=== PATIENT | male | born 1970 | race Caucasian/White ===

== ENCOUNTER 2021-02-06 13:00 | Inpatient (IN) | payer OTHER ==
[2021-02-06 13:46] VITALS: BMI 32.5
[2021-02-06] MEDS ORDERED: ONDANSETRON *ODT* 4 MG TABLET SL PRN (14:02)
[2021-02-06] MEDS ORDERED: MAGNESIUM HYDROX 2400MG/30ML ORAL SUSPENSION 30 ML CUP PO PRN (14:02)
[2021-02-06] MEDS ORDERED: MAGNESIUM CITRATE 300 ML BOTTLE PO PRN (14:02)
[2021-02-06] MEDS ORDERED: cloNIDine HCL 0.1 MG TABLET PO PRN (14:02)
[2021-02-06] MEDS ORDERED: NICOTINE POLACRILEX 2 MG GUM BUC PRN (14:02)
[2021-02-06] MEDS ORDERED: MENTHOL/PHENOL 1 EACH UD MM PRN (14:02)
[2021-02-06] MEDS ORDERED: ACETAMINOPHEN 325 MG TABLET (FP) PO PRN ×2 (14:02)
[2021-02-06] MEDS ORDERED: MAG HYDROX/AL HYDROX/SIMETH 30 ML UNIT-DOSE CUP PO PRN (14:02)
[2021-02-06] MEDS ORDERED: BISMUTH SUBSALICYLATE 524 MG/30 ML PO PRN (14:02)
[2021-02-06] MEDS ORDERED: METHADONE HCL 10 MG TABLET (FOR DETOX USE ONLY) PO ONE (14:15)
[2021-02-06 15:29] LABS: CALCIUM 9.7 mg/dL (8.5-10.1)
[2021-02-06 15:30] LABS: ALBUMIN 4.2 g/dl (3.4-5.0); BLOOD UREA NITROGEN 10.5 mg/dL (7-18)
[2021-02-06] MEDS: NICOTINE 7 MG/24 HOURS TOPICAL PATCH TD SCH (15:30)
[2021-02-06 15:33] LABS: HEMATOCRIT 40.1 % (35.4-49); HEMOGLOBIN 14.1 GM/dL (11.7-16.9); MCH 30.9 pg (25.7-33.7); MCHC 35.2 g/dl (32.0-35.9); MEAN CELL VOLUME 87.8 fl (80-96); MEAN PLT VOLUME 11.2 fl (7.5-11.1); PLATELET COUNT 201 K/MM3 (134-434); RBC 4.57 M/mm3 (4.00-5.60); RDW 12.9 % (11.9-15.9); WHITE BLOOD COUNT 7.5 K/mm3 (4.0-10.0)
[2021-02-06] MEDS: IBUPROFEN 400 MG TABLET (FP) PO PRN (15:33)
[2021-02-06] MEDS: METHOCARBAMOL 500 MG TABLET PO PRN ×2 (15:33→22:21)
[2021-02-06 15:34] LABS: BILIRUBIN,TOTAL 0.3 mg/dL (0.2-1); CREATININE 1.1 mg/dL (0.55-1.3); TOT PROT 7.5 g/dl (6.4-8.2)
[2021-02-06] MEDS ORDERED: INSULIN (NOVOLOG) ASPART 100 UNITS/ML 10ML VIAL ONE (17:23)
[2021-02-06] MEDS: hydrOXYzine PAMOATE 25 MG CAPSULE (FP) PO SCH ×2 (17:53→22:22)
[2021-02-06] MEDS: INSULIN SLIDING SCALE (NOVOLOG) 1 VIAL SQ SCH ×2 (17:54→22:22)
[2021-02-06] MEDS ORDERED: MELATONIN 5 MG TABLETS PO SCH (22:00)
[2021-02-06] MEDS: THIAMINE HCL 100 MG TABLET (FP) PO SCH (22:22)
[2021-02-07] MEDS: IBUPROFEN 400 MG TABLET (FP) PO PRN ×2 (05:55→14:21)
[2021-02-07] MEDS: METHOCARBAMOL 500 MG TABLET PO PRN ×3 (05:55→22:11)
[2021-02-07] MEDS: hydrOXYzine PAMOATE 25 MG CAPSULE (FP) PO SCH ×5 (06:52→22:15)
[2021-02-07] MEDS: INSULIN SLIDING SCALE (NOVOLOG) 1 VIAL SQ SCH ×4 (07:40→22:15)
[2021-02-07] MEDS ORDERED: METHADONE HCL 10 MG TABLET (FOR DETOX USE ONLY) ONE (09:29)
[2021-02-07] MEDS ORDERED: METHADONE HCL 5 MG TABLET (FOR DETOX USE ONLY) ONE (09:29)
[2021-02-07] MEDS ORDERED: METHADONE (DETOX) 20 MG, METHADONE (DETOX) 5 MG PO ONE (10:00)
[2021-02-07] MEDS: NICOTINE 7 MG/24 HOURS TOPICAL PATCH TD SCH (10:09)
[2021-02-07] MEDS: PRENATAL VITAMINS W/ FOLIC ACID TABLET (FP) PO SCH (10:11)
[2021-02-07] MEDS ORDERED: INSULIN (NOVOLOG) ASPART 100 UNITS/ML 10ML VIAL ONE (11:45)
[2021-02-07 12:48] LABS: HIV INTERPRETATION PRESUMPTIVE POSITIVE (NEGATIVE)
[2021-02-07] MEDS ORDERED: SUVOREXANT 10 MG TABLET PO PRN (22:00)
[2021-02-07] MEDS: ASPIRIN COATED 81 MG TABLET.EC PO SCH (22:10)
[2021-02-07] MEDS: THIAMINE HCL 100 MG TABLET (FP) PO SCH (22:11)
[2021-02-07] MEDS: SUVOREXANT 5 MG TABLET PO PRN (22:13)
[2021-02-08] MEDS: hydrOXYzine PAMOATE 25 MG CAPSULE (FP) PO SCH ×5 (06:02→23:23)
[2021-02-08] MEDS: INSULIN SLIDING SCALE (NOVOLOG) 1 VIAL SQ SCH ×4 (07:32→23:22)
[2021-02-08] MEDS ORDERED: METHADONE HCL 10 MG TABLET (FOR DETOX USE ONLY) PO ONE (10:00)
[2021-02-08] MEDS: ASPIRIN COATED 81 MG TABLET.EC PO SCH (10:04)
[2021-02-08] MEDS: METHOCARBAMOL 500 MG TABLET PO PRN ×2 (10:06→22:07)
[2021-02-08] MEDS: IBUPROFEN 400 MG TABLET (FP) PO PRN ×2 (10:06→22:09)
[2021-02-08] MEDS: NICOTINE 7 MG/24 HOURS TOPICAL PATCH TD SCH (10:07)
[2021-02-08] MEDS: PRENATAL VITAMINS W/ FOLIC ACID TABLET (FP) PO SCH (10:07)
[2021-02-08] MEDS: THIAMINE HCL 100 MG TABLET (FP) PO SCH (22:07)
[2021-02-08] MEDS: SUVOREXANT 5 MG TABLET PO PRN (22:08)
[2021-02-09] MEDS: METHOCARBAMOL 500 MG TABLET PO PRN ×2 (05:29→11:47)
[2021-02-09] MEDS: hydrOXYzine PAMOATE 25 MG CAPSULE (FP) PO SCH ×5 (05:30→23:36)
[2021-02-09] MEDS: IBUPROFEN 400 MG TABLET (FP) PO PRN (05:31)
[2021-02-09] MEDS: INSULIN SLIDING SCALE (NOVOLOG) 1 VIAL SQ SCH ×4 (06:21→23:36)
[2021-02-09] MEDS ORDERED: METHADONE HCL 10 MG TABLET (FOR DETOX USE ONLY) ONE (09:00)
[2021-02-09] MEDS ORDERED: METHADONE HCL 5 MG TABLET (FOR DETOX USE ONLY) ONE (09:00)
[2021-02-09] MEDS ORDERED: METHADONE (DETOX) 10 MG, METHADONE (DETOX) 5 MG PO ONE (10:00)
[2021-02-09] MEDS: PRENATAL VITAMINS W/ FOLIC ACID TABLET (FP) PO SCH (10:09)
[2021-02-09] MEDS: ASPIRIN COATED 81 MG TABLET.EC PO SCH (10:09)
[2021-02-09] MEDS: NICOTINE 7 MG/24 HOURS TOPICAL PATCH TD SCH (10:11)
[2021-02-09] MEDS: ENALAPRIL MALEATE 5 MG TABLET PO SCH (18:40)
[2021-02-09 21:29] VITALS: TEMP 97.3
[2021-02-09] MEDS: THIAMINE HCL 100 MG TABLET (FP) PO SCH (23:37)
[2021-02-10] MEDS: hydrOXYzine PAMOATE 25 MG CAPSULE (FP) PO SCH ×2 (06:56→10:02)
[2021-02-10] MEDS: INSULIN SLIDING SCALE (NOVOLOG) 1 VIAL SQ SCH (06:56)
[2021-02-10] MEDS: PRENATAL VITAMINS W/ FOLIC ACID TABLET (FP) PO SCH (09:58)
[2021-02-10] MEDS: ENALAPRIL MALEATE 5 MG TABLET PO SCH (09:58)
[2021-02-10] MEDS: ASPIRIN COATED 81 MG TABLET.EC PO SCH (09:58)
[2021-02-10] MEDS: NICOTINE 7 MG/24 HOURS TOPICAL PATCH TD SCH (09:58)
[2021-02-10] MEDS: METHOCARBAMOL 500 MG TABLET PO PRN (10:00)
[2021-02-10] MEDS ORDERED: METHADONE HCL 10 MG TABLET (FOR DETOX USE ONLY) PO ONE (10:00)
[2021-02-10] MEDS: IBUPROFEN 400 MG TABLET (FP) PO PRN (10:02)
[2021-02-10 15:12] VITALS: BP 123/78; PULSE 74
[2021-02-11] MEDS ORDERED: METHADONE HCL 5 MG TABLET (FOR DETOX USE ONLY) PO ONE (06:00)
== END 2021-02-10 11:06 | disposition home or self-care (01) | DRG 773 ==
LOC: YASAS 13:00 → Y6N 14:37
PROVIDERS: ADMIT Allergy & Immunology; ATTEND Allergy & Immunology
PROC: HZ2ZZZZ Detoxification Services for Substance Abuse Treatment (ICD-10-PCS; principal; 2021-02-06)
DX: F11.23 Opioid dependence with withdrawal (principal); F14.20 Cocaine dependence, uncomplicated; F17.210 Nicotine dependence, cigarettes, uncomplicated; F19.24 Other psychoactive substance dependence with psychoactive substance-induced mood disorder; I10 Essential (primary) hypertension; B18.2 Chronic viral hepatitis C; E78.00 Pure hypercholesterolemia, unspecified; Z11.59 Encounter for screening for other viral diseases; Z91.14 Patient's other noncompliance with medication regimen; Z59.0 Homelessness
CPT/HCPCS: 36415; 71045-TC-FY; 80053; 82962; 85027; 86780; 87389; 93005; 93010; C9803; J0735; U0003; U0005

== ENCOUNTER 2021-07-02 16:08 | Inpatient (IN) | payer OTHER ==
[2021-07-02 17:54] VITALS: BMI 27.3
[2021-07-02] MEDS ORDERED: P-EPHED 60MG/TRIPROLIDI 2.5MG TABLET PO PRN (19:37)
[2021-07-02] MEDS ORDERED: MAGNESIUM HYDROX 2400MG/30ML ORAL SUSPENSION 30 ML CUP PO PRN (19:37)
[2021-07-02] MEDS ORDERED: LOPERAMIDE HCL 2 MG CAPSULE PO PRN (19:37)
[2021-07-02] MEDS ORDERED: MAG HYDROX/AL HYDROX/SIMETH 30 ML UNIT-DOSE CUP PO PRN (19:37)
[2021-07-02] MEDS ORDERED: IBUPROFEN 400 MG TABLET (FP) PO PRN (19:37)
[2021-07-02] MEDS ORDERED: MAGNESIUM CITRATE 300 ML BOTTLE PO PRN (19:37)
[2021-07-02] MEDS ORDERED: guaiFENesin 200 MG/10 ML 10 ML UNIT-DOSE CUPS PO PRN (19:37)
[2021-07-02] MEDS ORDERED: ACETAMINOPHEN 325 MG TABLET (FP) PO PRN (19:37)
[2021-07-03 01:05] VITALS: BP 149/92; PULSE 76; TEMP 98.6
[2021-07-03] MEDS: THIAMINE HCL 100 MG TABLET (FP) PO SCH ×2 (02:30→22:18)
[2021-07-03] MEDS: MELATONIN 5 MG TABLETS PO SCH ×2 (02:30→22:18)
[2021-07-03] MEDS: INSULIN SLIDING SCALE (NOVOLOG) 1 VIAL SQ SCH ×3 (02:30→17:27)
[2021-07-03 10:36] LABS: PH,URINE 6.5 (5.0-8.0); URINE APPEARANCE CLEAR; URINE BILIRUBIN NEGATIVE (NEGATIVE); URINE COLOR DK YELLOW; URINE GLUCOSE (UA) NEGATIVE (NEGATIVE); URINE KETONE TRACE (NEGATIVE); URINE LEUK ESTERASE NEGATIVE (NEGATIVE); URINE NITRITE NEGATIVE (NEGATIVE); URINE PROTEIN NEGATIVE (NEGATIVE)
[2021-07-03] MEDS: ASPIRIN 81 MG CHEWABLE TABLETS PO SCH (10:37)
[2021-07-03] MEDS: PRENATAL VITAMINS W/ FOLIC ACID TABLET (FP) PO SCH (10:37)
[2021-07-03] MEDS: ENALAPRIL MALEATE 5 MG TABLET PO SCH (10:38)
[2021-07-03] MEDS: FENOFIBRIC ACID 135 MG CAP PO SCH (10:38)
[2021-07-03 10:39] LABS: ALBUMIN 2.7 g/dl (3.4-5.0); BLOOD UREA NITROGEN 11.1 mg/dL (7-18); CALCIUM 8.5 mg/dL (8.5-10.1)
[2021-07-03 10:43] LABS: HEMATOCRIT 35.2 % (35.4-49); HEMOGLOBIN 12.2 GM/dL (11.7-16.9); MCH 29.6 pg (25.7-33.7); MCHC 34.6 g/dl (32.0-35.9); MEAN CELL VOLUME 85.5 fl (80-96); MEAN PLT VOLUME 10.4 fl (7.5-11.1); PLATELET COUNT 189 10^3/uL (134-434); RBC 4.12 M/mm3 (4.00-5.60); RDW 14.8 % (11.9-15.9); WHITE BLOOD COUNT 5.1 K/mm3 (4.0-10.0)
[2021-07-03 10:44] LABS: CREATININE 0.7 mg/dL (0.55-1.3)
[2021-07-03 10:46] LABS: TOT PROT 6.1 g/dl (6.4-8.2)
[2021-07-03 10:49] LABS: BILIRUBIN,TOTAL 0.2 mg/dL (0.2-1)
[2021-07-04] MEDS: INSULIN SLIDING SCALE (NOVOLOG) 1 VIAL SQ SCH (07:09)
[2021-07-04] MEDS ORDERED: TRIMETHOBENZAMIDE HCL 200MG/2ML INJ IM PRN (10:01)
[2021-07-04] MEDS: FENOFIBRIC ACID 135 MG CAP PO SCH (10:33)
[2021-07-04] MEDS: PRENATAL VITAMINS W/ FOLIC ACID TABLET (FP) PO SCH (10:33)
[2021-07-04] MEDS: ASPIRIN 81 MG CHEWABLE TABLETS PO SCH (10:33)
[2021-07-04] MEDS: ENALAPRIL MALEATE 5 MG TABLET PO SCH (10:33)
[2021-07-04] MEDS ORDERED: methaDONE HCL 40 MG DISPERSABLE TABLET PO ONE (11:26)
== END 2021-07-04 11:58 | disposition left against medical advice (07) | DRG 772 ==
LOC: YASAS 16:08 → Y3W 18:50
PROVIDERS: ADMIT Allergy & Immunology; ATTEND Allergy & Immunology
PROC: HZ42ZZZ Group Counseling for Substance Abuse Treatment, Cognitive-Behavioral (ICD-10-PCS; principal; 2021-07-02)
DX: F11.20 Opioid dependence, uncomplicated (principal); F14.20 Cocaine dependence, uncomplicated; F15.20 Other stimulant dependence, uncomplicated; F31.9 Bipolar disorder, unspecified; E78.5 Hyperlipidemia, unspecified; E11.9 Type 2 diabetes mellitus without complications; I10 Essential (primary) hypertension; Z86.19 Personal history of other infectious and parasitic diseases; F91.8 Other conduct disorders; Z91.19 Patient's noncompliance with other medical treatment and regimen
CPT/HCPCS: 36415; 80053; 81003; 82962; 85027; 86780; 87811

== ENCOUNTER 2021-12-31 12:40 | Inpatient (IN) | payer BC ==
[2021-12-31 18:21] VITALS: BMI 24.0
[2021-12-31] MEDS ORDERED: hydrOXYzine PAMOATE 25 MG CAPSULE (FP) PO PRN (20:48)
[2021-12-31] MEDS ORDERED: MAGNESIUM HYDROX 2400MG/30ML ORAL SUSPENSION 30 ML CUP PO PRN (20:48)
[2021-12-31] MEDS ORDERED: NICOTINE POLACRILEX 2 MG GUM BC PRN (20:48)
[2021-12-31] MEDS ORDERED: LOPERAMIDE HCL 2 MG CAPSULE PO PRN (20:48)
[2021-12-31] MEDS ORDERED: MAG HYDROX/AL HYDROX/SIMETH 30 ML UNIT-DOSE CUP PO PRN (20:48)
[2021-12-31] MEDS ORDERED: MAGNESIUM CITRATE 300 ML BOTTLE PO PRN (20:48)
[2021-12-31] MEDS ORDERED: P-EPHED 60MG/TRIPROLIDI 2.5MG TABLET PO PRN (20:48)
[2021-12-31] MEDS ORDERED: BISMUTH SUBSALICYLATE 524 MG/30 ML PO PRN (21:31)
[2021-12-31] MEDS ORDERED: DICYCLOMINE HCL 10 MG CAPSULE PO PRN (21:31)
[2021-12-31] MEDS ORDERED: NALOXONE HCL 0.4 MG/ML VIAL IM PRN (21:31)
[2021-12-31] MEDS ORDERED: METHOCARBAMOL 500 MG TABLET PO PRN (21:31)
[2021-12-31] MEDS: diazePAM 5 MG TABLET PO SCH (23:38)
[2021-12-31] MEDS: MELATONIN 5 MG TABLETS PO SCH (23:39)
[2021-12-31] MEDS: THIAMINE HCL 100 MG TABLET (FP) PO SCH (23:39)
[2022-01-01] MEDS: diazePAM 5 MG TABLET PO SCH ×4 (06:03→22:26)
[2022-01-01] MEDS: AMOX TR/POT CLAV 875MG/125MG TABLETS (FP) PO SCH ×2 (07:15→22:25)
[2022-01-01] MEDS: PRENATAL VITAMINS W/ FOLIC ACID TABLET (FP) PO SCH (10:13)
[2022-01-01] MEDS: NICOTINE 14 MG/24 HOURS TOPICAL PATCH TD SCH (10:14)
[2022-01-01] MEDS ORDERED: methaDONE HCL 40 MG DISPERSABLE TABLET PO ONE (10:45)
[2022-01-01 11:06] LABS: HEMOGLOBIN 13.3 GM/dL (11.7-16.9); MCH 28.1 pg (25.7-33.7); MCHC 33.1 g/dl (32.0-35.9); MEAN CELL VOLUME 84.7 fl (80-96); MEAN PLT VOLUME 9.8 fl (7.5-11.1); PLATELET COUNT 291 10^3/uL (134-434); RBC 4.73 M/mm3 (4.00-5.60); RDW 14.7 % (11.9-15.9); WHITE BLOOD COUNT 7.3 K/mm3 (4.0-10.0)
[2022-01-01 12:57] LABS: CALCIUM 9.4 mg/dL (8.5-10.1)
[2022-01-01 12:58] LABS: ALBUMIN 3.3 g/dl (3.4-5.0)
[2022-01-01 13:02] LABS: BILIRUBIN,TOTAL 0.3 mg/dL (0.2-1)
[2022-01-01 13:03] LABS: TOT PROT 7.5 g/dl (6.4-8.2)
[2022-01-01] MEDS ORDERED: POTASSIUM CHLORIDE ORAL LIQUID 20 MEQ/15 ML PO ONE (14:00)
[2022-01-01] MEDS: guaiFENesin 200 MG/10 ML 10 ML UNIT-DOSE CUPS PO PRN (15:04)
[2022-01-01] MEDS: IBUPROFEN 400 MG TABLET (FP) PO PRN (17:13)
[2022-01-01] MEDS: ONDANSETRON *ODT* 4 MG TABLET SL PRN (20:43)
[2022-01-01] MEDS: QUEtiapine FUMARATE 50 MG TABLET PO SCH (22:25)
[2022-01-01] MEDS: THIAMINE HCL 100 MG TABLET (FP) PO SCH (22:25)
[2022-01-01] MEDS: POTASSIUM CHLORIDE ORAL LIQUID 20 MEQ/15 ML PO SCH (22:25)
[2022-01-01] MEDS: MELATONIN 5 MG TABLETS PO SCH (22:26)
[2022-01-02] MEDS ORDERED: methaDONE HCL 40 MG DISPERSABLE TABLET ONE (04:16)
[2022-01-02] MEDS ORDERED: methaDONE HCL 10 MG TABLET ONE (04:16)
[2022-01-02] MEDS: diazePAM 5 MG TABLET PO SCH ×3 (05:57→22:46)
[2022-01-02] MEDS ORDERED: methaDONE HCL 10 MG TABLET PO ONE (06:00)
[2022-01-02] MEDS ORDERED: methaDONE 40 MG, methaDONE 10 MG PO ONE (06:00)
[2022-01-02] MEDS: AMOX TR/POT CLAV 875MG/125MG TABLETS (FP) PO SCH ×2 (08:32→21:00)
[2022-01-02] MEDS: PRENATAL VITAMINS W/ FOLIC ACID TABLET (FP) PO SCH (10:27)
[2022-01-02] MEDS: NICOTINE 14 MG/24 HOURS TOPICAL PATCH TD SCH (10:27)
[2022-01-02] MEDS: POTASSIUM CHLORIDE ORAL LIQUID 20 MEQ/15 ML PO SCH ×2 (10:28→21:37)
[2022-01-02] MEDS: PANTOPRAZOLE 20 MG TABLET PO SCH (10:28)
[2022-01-02] MEDS: ASPIRIN 81 MG CHEWABLE TABLETS PO SCH (10:29)
[2022-01-02] MEDS: diazePAM 5 MG TABLET PO PRN ×2 (10:32→18:43)
[2022-01-02] MEDS: FENOFIBRIC ACID 135 MG CAP PO SCH (13:55)
[2022-01-02] MEDS: ENALAPRIL MALEATE 5 MG TABLET PO SCH (13:55)
[2022-01-02 14:14] LABS: SARS-CoV-2 NAA Not Detected (Not Detected)
[2022-01-02] MEDS: ONDANSETRON *ODT* 4 MG TABLET SL PRN (14:37)
[2022-01-02 17:24] LABS: EPI CELLS 2 /uL (0-25.1); HYALINE CASTS 0 /uL (0-3.1); URINE APPEARANCE CLEAR; URINE BILIRUBIN NEGATIVE (NEGATIVE); URINE COLOR YELLOW; URINE GLUCOSE (UA) NEGATIVE (NEGATIVE); URINE KETONE NEGATIVE (NEGATIVE); URINE LEUK ESTERASE NEGATIVE (NEGATIVE); URINE NITRITE POSITIVE (NEGATIVE); URINE PROTEIN NEGATIVE (NEGATIVE); URINE RBC 2 /uL (0-23.9); URINE UROBILINOGEN 0.2 mg/dL (0.2-1.0); URINE WBC 2 /uL (0-25.8)
[2022-01-02] MEDS: IBUPROFEN 400 MG TABLET (FP) PO PRN (18:41)
[2022-01-02] MEDS: BENZOCAINE/MENTHOL (CHLORASEPTIC ) LOZENGE MM PRN (18:45)
[2022-01-02] MEDS: guaiFENesin 200 MG/10 ML 10 ML UNIT-DOSE CUPS PO PRN (18:45)
[2022-01-02] MEDS: ACETAMINOPHEN 325 MG TABLET (FP) PO PRN (20:45)
[2022-01-02] MEDS: MELATONIN 5 MG TABLETS PO SCH (21:37)
[2022-01-02] MEDS: QUEtiapine FUMARATE 50 MG TABLET PO SCH (21:37)
[2022-01-02] MEDS: THIAMINE HCL 100 MG TABLET (FP) PO SCH (21:37)
[2022-01-03] MEDS ORDERED: methaDONE HCL 10 MG TABLET ONE (04:55)
[2022-01-03] MEDS ORDERED: methaDONE HCL 40 MG DISPERSABLE TABLET ONE (04:56)
[2022-01-03] MEDS ORDERED: methaDONE HCL 10 MG TABLET PO ONE (06:00)
[2022-01-03] MEDS ORDERED: methaDONE 40 MG, methaDONE 20 MG PO ONE (06:00)
[2022-01-03] MEDS: diazePAM 5 MG TABLET PO SCH ×2 (06:19→17:42)
[2022-01-03] MEDS: IBUPROFEN 400 MG TABLET (FP) PO PRN ×2 (06:20→17:41)
[2022-01-03] MEDS: AMOX TR/POT CLAV 875MG/125MG TABLETS (FP) PO SCH ×2 (07:33→20:35)
[2022-01-03] MEDS: ASPIRIN 81 MG CHEWABLE TABLETS PO SCH (10:14)
[2022-01-03] MEDS: ENALAPRIL MALEATE 5 MG TABLET PO SCH (10:14)
[2022-01-03] MEDS: FENOFIBRIC ACID 135 MG CAP PO SCH (10:14)
[2022-01-03] MEDS: PANTOPRAZOLE 20 MG TABLET PO SCH (10:14)
[2022-01-03] MEDS: NICOTINE 14 MG/24 HOURS TOPICAL PATCH TD SCH (10:15)
[2022-01-03] MEDS: PRENATAL VITAMINS W/ FOLIC ACID TABLET (FP) PO SCH (10:15)
[2022-01-03] MEDS: ACETAMINOPHEN 325 MG TABLET (FP) PO PRN (10:16)
[2022-01-03] MEDS: diazePAM 5 MG TABLET PO PRN (10:17)
[2022-01-03] MEDS: ONDANSETRON *ODT* 4 MG TABLET SL PRN (19:55)
[2022-01-03] MEDS: QUEtiapine FUMARATE 50 MG TABLET PO SCH (23:02)
[2022-01-03] MEDS: MELATONIN 5 MG TABLETS PO SCH (23:02)
[2022-01-03] MEDS: THIAMINE HCL 100 MG TABLET (FP) PO SCH (23:03)
[2022-01-04] MEDS ORDERED: methaDONE HCL 10 MG TABLET ONE (04:49)
[2022-01-04] MEDS ORDERED: methaDONE HCL 40 MG DISPERSABLE TABLET ONE (04:49)
[2022-01-04] MEDS ORDERED: methaDONE HCL 10 MG TABLET PO ONE (06:00)
[2022-01-04] MEDS ORDERED: methaDONE 40 MG, methaDONE 30 MG PO ONE (06:00)
[2022-01-04] MEDS ORDERED: diazePAM 5 MG TABLET PO ONE (06:00)
[2022-01-04] MEDS: AMOX TR/POT CLAV 875MG/125MG TABLETS (FP) PO SCH ×2 (07:28→19:51)
[2022-01-04] MEDS: PANTOPRAZOLE 20 MG TABLET PO SCH (10:27)
[2022-01-04] MEDS: PRENATAL VITAMINS W/ FOLIC ACID TABLET (FP) PO SCH (10:27)
[2022-01-04] MEDS: ASPIRIN 81 MG CHEWABLE TABLETS PO SCH (10:27)
[2022-01-04] MEDS: FENOFIBRIC ACID 135 MG CAP PO SCH (10:27)
[2022-01-04] MEDS: NICOTINE 14 MG/24 HOURS TOPICAL PATCH TD SCH (10:27)
[2022-01-04] MEDS: ENALAPRIL MALEATE 5 MG TABLET PO SCH (10:31)
[2022-01-04] MEDS: THIAMINE HCL 100 MG TABLET (FP) PO SCH (22:27)
[2022-01-04] MEDS: MELATONIN 5 MG TABLETS PO SCH (22:27)
[2022-01-04] MEDS: QUEtiapine FUMARATE 50 MG TABLET PO SCH (22:27)
[2022-01-05] MEDS: BENZOCAINE/MENTHOL (CHLORASEPTIC ) LOZENGE MM PRN (05:20)
[2022-01-05] MEDS ORDERED: methaDONE HCL 40 MG DISPERSABLE TABLET PO SCH ×2 (06:00)
[2022-01-05] MEDS: AMOX TR/POT CLAV 875MG/125MG TABLETS (FP) PO SCH (07:07)
[2022-01-05 09:02] VITALS: BP 105/61; PULSE 81; TEMP 96.9
[2022-01-05] MEDS: PANTOPRAZOLE 20 MG TABLET PO SCH (09:34)
[2022-01-05] MEDS: ENALAPRIL MALEATE 5 MG TABLET PO SCH (09:34)
[2022-01-05] MEDS: PRENATAL VITAMINS W/ FOLIC ACID TABLET (FP) PO SCH (09:34)
[2022-01-05] MEDS: FENOFIBRIC ACID 135 MG CAP PO SCH (09:35)
[2022-01-05] MEDS: ASPIRIN 81 MG CHEWABLE TABLETS PO SCH (09:35)
[2022-01-05] MEDS: NICOTINE 14 MG/24 HOURS TOPICAL PATCH TD SCH (09:38)
== END 2022-01-05 11:05 | disposition other institution (70) | DRG 773 ==
LOC: YASAS 12:40 → UNDOADMIN 18:29 → Y3W 18:29 → Y3N 22:09
PROVIDERS: ADMIT Allergy & Immunology; ATTEND Allergy & Immunology
PROC: HZ2ZZZZ Detoxification Services for Substance Abuse Treatment (ICD-10-PCS; principal; 2021-12-31)
DX: F11.23 Opioid dependence with withdrawal (principal); F10.230 Alcohol dependence with withdrawal, uncomplicated; F14.20 Cocaine dependence, uncomplicated; F17.210 Nicotine dependence, cigarettes, uncomplicated; F19.24 Other psychoactive substance dependence with psychoactive substance-induced mood disorder; F31.9 Bipolar disorder, unspecified; E11.65 Type 2 diabetes mellitus with hyperglycemia; E87.6 Hypokalemia; E78.5 Hyperlipidemia, unspecified; I10 Essential (primary) hypertension; K21.9 Gastro-esophageal reflux disease without esophagitis; N39.0 Urinary tract infection, site not specified; S00.81XA Abrasion of other part of head, initial encounter; W22.03XA Walked into furniture, initial encounter; Y92.230 Patient room in hospital as the place of occurrence of the external cause; Z86.11 Personal history of tuberculosis; Z86.19 Personal history of other infectious and parasitic diseases; Z91.410 Personal history of adult physical and sexual abuse; Z86.73 Personal history of transient ischemic attack (TIA), and cerebral infarction without residual deficits
CPT/HCPCS: 36415; 80053; 81003; 82962; 85027; 86780; 93005; 93010; C9803-CS; Q0162; U0003; U0005

== ENCOUNTER 2022-01-03 12:06 | Emergency (ER) | payer BC ==
[2022-01-03 12:29] VITALS: BP 123/75; PULSE 84; TEMP 97.6; BMI 25.7
[2022-01-03] MEDS ORDERED: BACITRACIN 15 GM TUBE TOPICAL OINTMENT TP ONE (12:39)
[2022-01-03] MEDS ORDERED: BACITRACIN 15 GM TUBE TOPICAL OINTMENT ONE (13:03)
== END 2022-01-03 13:15 | disposition home or self-care (01) ==
LOC: JERFT 12:06
DX: S00.81XA Abrasion of other part of head, initial encounter (principal); W01.198A Fall on same level from slipping, tripping and stumbling with subsequent striking against other object, initial encounter
CPT/HCPCS: 82962; 99283-25

== ENCOUNTER 2023-05-31 20:00 | Inpatient (IN) | payer OTHER ==
[2023-05-31 21:36] VITALS: BMI 25.7
[2023-05-31] MEDS ORDERED: BENZONATATE 200 MG CAPSULE PO PRN (22:50)
[2023-05-31] MEDS ORDERED: P-EPHED 60MG/TRIPROLIDI 2.5MG TABLET PO PRN (22:50)
[2023-05-31] MEDS ORDERED: NALOXONE HCL 0.4 MG/ML VIAL IM PRN (22:50)
[2023-05-31] MEDS ORDERED: MAGNESIUM HYDROX 2400MG/30ML ORAL SUSPENSION 30 ML CUP PO PRN (22:50)
[2023-05-31] MEDS ORDERED: NICOTINE POLACRILEX 2 MG GUM BUC PRN (22:50)
[2023-05-31] MEDS ORDERED: NALOXONE HCL (KLOXXADO) 8 MG SPRAY NS PRN (22:50)
[2023-05-31] MEDS ORDERED: guaiFENesin 600 MG TABLET.ER (FP) PO PRN (22:50)
[2023-05-31] MEDS ORDERED: BENZOCAINE/MENTHOL (CHLORASEPTIC ) LOZENGE MM PRN (22:50)
[2023-05-31] MEDS ORDERED: ACETAMINOPHEN 325 MG TABLET (FP) PO PRN (22:50)
[2023-05-31] MEDS ORDERED: DICYCLOMINE HCL 10 MG CAPSULE PO PRN (22:50)
[2023-05-31] MEDS ORDERED: LOPERAMIDE HCL 2 MG CAPSULE PO PRN (22:50)
[2023-05-31] MEDS ORDERED: BISMUTH SUBSALICYLATE 524 MG/30 ML PO PRN (22:50)
[2023-05-31] MEDS ORDERED: IBUPROFEN 400 MG TABLET (FP) PO PRN (22:50)
[2023-05-31] MEDS ORDERED: hydrOXYzine PAMOATE 25 MG CAPSULE (FP) PO PRN (22:50)
[2023-05-31] MEDS ORDERED: POLYETHYLENE GLYCOL (HEALTHYLAX) 3350 17 GM PACKET PO PRN (22:50)
[2023-05-31] MEDS ORDERED: MAG HYDROX/AL HYDROX/SIMETH 30 ML UNIT-DOSE CUP PO PRN (22:50)
[2023-05-31] MEDS ORDERED: ONDANSETRON *ODT* 4 MG TABLET SL PRN (22:50)
[2023-06-01] MEDS ORDERED: methaDONE HCL 10 MG TABLET (FOR DETOX USE ONLY) PO ONE (09:41)
[2023-06-01] MEDS ORDERED: diazePAM 5 MG TABLET PO PRN (09:42)
[2023-06-01] MEDS: PANTOPRAZOLE 20 MG TABLET PO SCH (10:00)
[2023-06-01] MEDS: ASPIRIN 81 MG CHEWABLE TABLETS PO SCH (10:00)
[2023-06-01] MEDS: PRENATAL VITAMINS W/ FOLIC ACID TABLET (FP) PO SCH (10:00)
[2023-06-01] MEDS: ENALAPRIL MALEATE 5 MG TABLET PO SCH (10:49)
[2023-06-01] MEDS: FENOFIBRIC ACID 135 MG CAP PO SCH (10:49)
[2023-06-01 12:20] LABS: HEMATOCRIT 39.3 % (35.4-49); HEMOGLOBIN 13.2 GM/dL (11.7-16.9); MCH 29.3 pg (25.7-33.7); MCHC 33.5 g/dl (32.0-35.9); MEAN CELL VOLUME 87.4 fl (80-96); MEAN PLT VOLUME 9.8 fl (7.5-11.1); PLATELET COUNT 252 10^3/uL (134-434); RBC 4.49 M/mm3 (4.00-5.60); RDW 13.7 % (11.9-15.9); WHITE BLOOD COUNT 7.9 K/mm3 (4.0-10.0)
[2023-06-01 13:18] LABS: POTASSIUM 4.1 mmol/L (3.5-5.1)
[2023-06-01 13:42] LABS: ALBUMIN 3.4 g/dl (3.4-5.0); BLOOD UREA NITROGEN 10.3 mg/dL (7-18); CALCIUM 9.1 mg/dL (8.5-10.1)
[2023-06-01 13:44] LABS: CREATININE 0.7 mg/dL (0.55-1.3)
[2023-06-01 13:48] LABS: BILIRUBIN,TOTAL 0.4 mg/dL (0.2-1); TOT PROT 7.6 g/dl (6.4-8.2)
[2023-06-01] MEDS: THIAMINE HCL 100 MG TABLET (FP) PO SCH (22:37)
[2023-06-01] MEDS: MELATONIN 5 MG TABLETS PO SCH (22:37)
[2023-06-02] MEDS: FENOFIBRIC ACID 135 MG CAP PO SCH (10:26)
[2023-06-02] MEDS: ASPIRIN 81 MG CHEWABLE TABLETS PO SCH (10:26)
[2023-06-02] MEDS: PANTOPRAZOLE 20 MG TABLET PO SCH (10:26)
[2023-06-02] MEDS: PRENATAL VITAMINS W/ FOLIC ACID TABLET (FP) PO SCH (10:26)
[2023-06-02] MEDS: ENALAPRIL MALEATE 5 MG TABLET PO SCH (10:26)
[2023-06-02] MEDS: cloNIDine HCL 0.1 MG TABLET PO PRN (17:42)
[2023-06-02] MEDS: MELATONIN 5 MG TABLETS PO SCH (22:57)
[2023-06-02] MEDS: THIAMINE HCL 100 MG TABLET (FP) PO SCH (22:57)
[2023-06-03] MEDS ORDERED: methaDONE HCL 10 MG TABLET (FOR DETOX USE ONLY) PO ONE (10:00)
[2023-06-03] MEDS: PANTOPRAZOLE 20 MG TABLET PO SCH (10:03)
[2023-06-03] MEDS: ENALAPRIL MALEATE 5 MG TABLET PO SCH (10:03)
[2023-06-03] MEDS: FENOFIBRIC ACID 135 MG CAP PO SCH (10:03)
[2023-06-03] MEDS: PRENATAL VITAMINS W/ FOLIC ACID TABLET (FP) PO SCH (10:03)
[2023-06-03] MEDS: ASPIRIN 81 MG CHEWABLE TABLETS PO SCH (10:03)
[2023-06-03] MEDS: cloNIDine HCL 0.1 MG TABLET PO PRN ×2 (17:40→22:40)
[2023-06-03] MEDS: MELATONIN 5 MG TABLETS PO SCH (22:40)
[2023-06-03] MEDS: THIAMINE HCL 100 MG TABLET (FP) PO SCH (22:41)
[2023-06-04] MEDS: PANTOPRAZOLE 20 MG TABLET PO SCH (10:08)
[2023-06-04] MEDS: ASPIRIN 81 MG CHEWABLE TABLETS PO SCH (10:08)
[2023-06-04] MEDS: FENOFIBRIC ACID 135 MG CAP PO SCH (10:08)
[2023-06-04] MEDS: PRENATAL VITAMINS W/ FOLIC ACID TABLET (FP) PO SCH (10:10)
[2023-06-04] MEDS: ENALAPRIL MALEATE 5 MG TABLET PO SCH (10:10)
[2023-06-04] MEDS: IBUPROFEN 600 MG TABLET (FP) PO PRN (18:43)
[2023-06-04] MEDS ORDERED: ENALAPRIL MALEATE 5 MG TABLET PO ONE (19:27)
[2023-06-04] MEDS ORDERED: ENALAPRIL MALEATE 10 MG TABLET PO SCH (19:30)
[2023-06-04] MEDS ORDERED: LISINOPRIL 5 MG TABLET PO ONE (19:34)
[2023-06-04] MEDS ORDERED: ENALAPRIL MALEATE 10 MG TABLET PO ONE (20:00)
[2023-06-04] MEDS: THIAMINE HCL 100 MG TABLET (FP) PO SCH (23:00)
[2023-06-04] MEDS: MELATONIN 5 MG TABLETS PO SCH (23:00)
[2023-06-05] MEDS: ASPIRIN 81 MG CHEWABLE TABLETS PO SCH (09:58)
[2023-06-05] MEDS: PRENATAL VITAMINS W/ FOLIC ACID TABLET (FP) PO SCH (09:58)
[2023-06-05] MEDS ORDERED: methaDONE HCL 10 MG TABLET (FOR DETOX USE ONLY) PO ONE (10:00)
[2023-06-05] MEDS: PANTOPRAZOLE 20 MG TABLET PO SCH (10:00)
[2023-06-05] MEDS: FENOFIBRIC ACID 135 MG CAP PO SCH (10:00)
[2023-06-05] MEDS: IBUPROFEN 600 MG TABLET (FP) PO PRN (10:01)
[2023-06-05] MEDS: ENALAPRIL MALEATE 10 MG TABLET PO SCH (10:04)
[2023-06-05] MEDS ORDERED: cloNIDine HCL 0.1 MG TABLET PO PRN (12:02)
[2023-06-05] MEDS: THIAMINE HCL 100 MG TABLET (FP) PO SCH (21:43)
[2023-06-05] MEDS: MELATONIN 5 MG TABLETS PO SCH (21:43)
[2023-06-06 06:30] VITALS: BP 147/66; PULSE 87; RESP 19; TEMP 98
[2023-06-06] MEDS: ASPIRIN 81 MG CHEWABLE TABLETS PO SCH (10:43)
[2023-06-06] MEDS: PANTOPRAZOLE 20 MG TABLET PO SCH (10:43)
[2023-06-06] MEDS: FENOFIBRIC ACID 135 MG CAP PO SCH (10:43)
[2023-06-06] MEDS: PRENATAL VITAMINS W/ FOLIC ACID TABLET (FP) PO SCH (10:43)
[2023-06-06] MEDS: ENALAPRIL MALEATE 10 MG TABLET PO SCH (10:43)
== END 2023-06-06 08:57 | disposition home or self-care (01) | DRG 773 ==
LOC: YASAS 20:00 → Y3N 23:35
PROVIDERS: ADMIT Allergy & Immunology; ATTEND Surgery
PROC: HZ2ZZZZ Detoxification Services for Substance Abuse Treatment (ICD-10-PCS; principal; 2023-05-31)
DX: F11.23 Opioid dependence with withdrawal (principal); F14.20 Cocaine dependence, uncomplicated; F17.210 Nicotine dependence, cigarettes, uncomplicated; F31.9 Bipolar disorder, unspecified; I10 Essential (primary) hypertension; Z86.19 Personal history of other infectious and parasitic diseases; Z86.73 Personal history of transient ischemic attack (TIA), and cerebral infarction without residual deficits; Z86.39 Personal history of other endocrine, nutritional and metabolic disease
CPT/HCPCS: 36415; 80053; 85027; 86780; 87635

== ENCOUNTER 2023-11-22 22:26 | Inpatient (IN) | payer OTHER ==
[2023-11-22 14:05] VITALS: BMI 27.4
[2023-11-23] MEDS ORDERED: IBUPROFEN 400 MG TABLET (FP) PO PRN (00:01)
[2023-11-23] MEDS ORDERED: guaiFENesin 600 MG TABLET.ER (FP) PO PRN (00:01)
[2023-11-23] MEDS ORDERED: NALOXONE HCL 0.4 MG/ML VIAL IM PRN (00:01)
[2023-11-23] MEDS ORDERED: NALOXONE HCL (KLOXXADO) 8 MG SPRAY NS PRN (00:01)
[2023-11-23] MEDS ORDERED: POLYETHYLENE GLYCOL (HEALTHYLAX) 3350 17 GM PACKET PO PRN (00:01)
[2023-11-23] MEDS ORDERED: MAGNESIUM HYDROX 2400MG/30ML ORAL SUSPENSION 30 ML CUP PO PRN (00:01)
[2023-11-23] MEDS ORDERED: BENZONATATE 200 MG CAPSULE PO PRN (00:01)
[2023-11-23] MEDS ORDERED: NICOTINE POLACRILEX 2 MG GUM BUC PRN (00:01)
[2023-11-23] MEDS: IBUPROFEN 600 MG TABLET (FP) PO PRN (06:34)
[2023-11-23] MEDS: PRENATAL VITAMINS W/ FOLIC ACID TABLET (FP) PO SCH (10:20)
[2023-11-23] MEDS: NICOTINE 14 MG/24 HOURS TOPICAL PATCH TD SCH (10:20)
[2023-11-23] MEDS: traZODone HCL 100 MG TABLET (FP) PO SCH (22:55)
[2023-11-23] MEDS: QUEtiapine FUMARATE 100 MG TABLET (FP) PO SCH (22:55)
[2023-11-23] MEDS: THIAMINE HCL 100 MG TABLET (FP) PO SCH (22:55)
[2023-11-23] MEDS: MELATONIN 5 MG TABLETS PO SCH (22:55)
[2023-11-24 08:53] LABS: HEMATOCRIT 38.4 % (35.4-49); HEMOGLOBIN 12.8 GM/dL (11.7-16.9); MCH 29.5 pg (25.7-33.7); MCHC 33.4 g/dl (32.0-35.9); MEAN CELL VOLUME 88.3 fl (80-96); MEAN PLT VOLUME 9.9 fl (7.5-11.1); PLATELET COUNT 211 10^3/uL (134-434); RBC 4.35 M/mm3 (4.00-5.60); WHITE BLOOD COUNT 8.3 K/mm3 (4.0-10.0)
[2023-11-24 09:02] LABS: EPI CELLS 4 /uL (0-25.1); HYALINE CASTS 0 /uL (0-3.1); URINE APPEARANCE CLEAR; URINE BACTERIA 4 /uL (0-1359); URINE BILIRUBIN NEGATIVE (NEGATIVE); URINE COLOR YELLOW; URINE GLUCOSE (UA) NEGATIVE (NEGATIVE); URINE KETONE NEGATIVE (NEGATIVE); URINE LEUK ESTERASE TRACE (NEGATIVE); URINE NITRITE NEGATIVE (NEGATIVE); URINE PROTEIN NEGATIVE (NEGATIVE); URINE RBC 6 /uL (0-23.9); URINE UROBILINOGEN 0.2 mg/dL (0.2-1.0); URINE WBC 19 /uL (0-25.8)
[2023-11-24 09:07] LABS: POTASSIUM 4.3 mmol/L (3.5-5.1)
[2023-11-24 09:15] LABS: BLOOD UREA NITROGEN 11.6 mg/dL (7-18)
[2023-11-24 09:18] LABS: CREATININE 0.7 mg/dL (0.55-1.3)
[2023-11-24 09:19] LABS: BILIRUBIN,TOTAL 0.3 mg/dL (0.2-1)
[2023-11-24 09:20] LABS: TOT PROT 6.7 g/dl (6.4-8.2)
[2023-11-24 11:52] LABS: SYPHILIS W/ RPR CONF NON-REACTIVE (NONREACTIVE)
[2023-11-25] MEDS: BUPRENORPHINE/NALOXONE 2 MG/0.5 MG FILM PACKET SL ONE (12:51)
[2023-11-25] MEDS ORDERED: ONDANSETRON *ODT* 4 MG TABLET SL PRN (12:51)
[2023-11-25] MEDS ORDERED: METHOCARBAMOL 500 MG TABLET PO PRN (12:51)
[2023-11-25] MEDS ORDERED: BISMUTH SUBSALICYLATE 262 MG/15 ML BTL PO PRN (12:51)
[2023-11-25] MEDS ORDERED: DICYCLOMINE HCL 10 MG CAPSULE PO PRN (12:51)
[2023-11-25] MEDS: BUPRENORPHINE/NALOXONE 4 MG/1 MG FILM PACKET SL ONE (15:50)
[2023-11-25] MEDS: LOPERAMIDE HCL 2 MG CAPSULE PO PRN (15:50)
[2023-11-25] MEDS: BUPRENORPHINE/NALOXONE 8 MG/2 MG FILM PACKET SL ONE (21:07)
[2023-11-26] MEDS: BUPRENORPHINE/NALOXONE 8 MG/2 MG FILM PACKET SL SCH (09:26)
[2023-11-26 11:42] LABS: INR 1.01 (0.83-1.09); PROTHROMBIN TIME (PATIENT) 11.7 SEC (9.7-13.0)
[2023-11-26] MEDS: LACTULOSE 20 GM/30 ML UDC (FOR ORAL USE ONLY) PO SCH (15:16)
[2023-11-26] MEDS: MAG HYDROX/AL HYDROX/SIMETH 30 ML UNIT-DOSE CUP PO PRN (18:41)
[2023-12-04] MEDS: P-EPHED 60MG/TRIPROLIDI 2.5MG TABLET PO PRN (22:15)
[2023-12-06] MEDS: RIFAXIMIN 550 MG TABLET PO SCH (14:24)
[2023-12-07] MEDS ORDERED: DICYCLOMINE HCL 10 MG CAPSULE PO PRN (14:32)
[2023-12-07] MEDS ORDERED: BENZONATATE 200 MG CAPSULE PO PRN (14:32)
[2023-12-07] MEDS ORDERED: METHOCARBAMOL 500 MG TABLET PO PRN (14:32)
[2023-12-07] MEDS: P-EPHED 60MG/TRIPROLIDI 2.5MG TABLET PO PRN (15:05)
[2023-12-07] MEDS: guaiFENesin 600 MG TABLET.ER (FP) PO PRN (15:05)
[2023-12-08] MEDS: ACETAMINOPHEN 325 MG TABLET (FP) PO PRN (02:01)
[2023-12-08] MEDS: hydrOXYzine PAMOATE 25 MG CAPSULE (FP) PO PRN (04:20)
[2023-12-08] MEDS: BENZOCAINE/MENTHOL (CHLORASEPTIC ) LOZENGE MM PRN (04:20)
[2023-12-08 07:15] VITALS: RESP 18; TEMP 97.1
[2023-12-08 09:15] VITALS: BP 130/80; PULSE 84
[2023-12-08] MEDS: AZITHROMYCIN 250 MG TABLET PO ONE (09:37)
[2023-12-09] MEDS: AZITHROMYCIN 250 MG TABLET PO SCH (09:46)
== END 2023-12-09 09:51 | disposition home or self-care (01) | DRG 772 ==
LOC: YASAS 22:26 → Y3W 11-23 01:41
PROVIDERS: ADMIT Allergy & Immunology; ATTEND Psychiatry & Neurology Pain Medicine
PROC: HZ42ZZZ Group Counseling for Substance Abuse Treatment, Cognitive-Behavioral (ICD-10-PCS; principal; 2023-11-23)
DX: F11.20 Opioid dependence, uncomplicated (principal); F10.20 Alcohol dependence, uncomplicated; F14.20 Cocaine dependence, uncomplicated; F17.210 Nicotine dependence, cigarettes, uncomplicated; F19.24 Other psychoactive substance dependence with psychoactive substance-induced mood disorder; E72.20 Disorder of urea cycle metabolism, unspecified; E11.65 Type 2 diabetes mellitus with hyperglycemia; G47.00 Insomnia, unspecified; I10 Essential (primary) hypertension; J06.9 Acute upper respiratory infection, unspecified; L03.113 Cellulitis of right upper limb; Z62.810 Personal history of physical and sexual abuse in childhood; Z91.410 Personal history of adult physical and sexual abuse; Z63.8 Other specified problems related to primary support group; Z63.0 Problems in relationship with spouse or partner; Z86.19 Personal history of other infectious and parasitic diseases; Z86.59 Personal history of other mental and behavioral disorders; Z56.0 Unemployment, unspecified; Z59.00 Homelessness unspecified
CPT/HCPCS: 0241U-QW; 36415; 80053; 81003; 82140; 82652; 82962; 83036; 83735; 85025; 85027; 85610; 86780; 86803; 87522; 93005; 93010; J0875